=== PATIENT | female | born 1975 | race African-American/Black ===

== ENCOUNTER 2017-02-14 15:39 | Emergency (ER) | payer OTHER ==
[~2017-02-14] VITALS: Ht 167.6 cm; Wt 87.0 kg
[2017-02-14 21:33] VITALS: BP 121/70
== END 2017-02-14 21:42 | disposition home or self-care (01) ==
LOC: ER 16:35
DX: A60.00 Herpesviral infection of urogenital system, unspecified (principal)
CPT/HCPCS: 99283